=== PATIENT | male | born 1990 | race Caucasian/White ===

== ENCOUNTER 2023-04-22 08:39 | Outpatient (AMB) | payer OTHER, SELFPAY ==
[2023-04-22 08:41] VITALS: BP 144/96; PULSE 81; O2SAT 96; BMI 35.3
--- NOTE | 2023-04-22 08:41 | MHC.PC.OV ---
Vital Signs 04/22/23 08:41 Height 5 ft 5 in Weight 212 lb BMI 35.3 BP 144/96 H Blood Pressure Location Lt brachial Position Sitting Pulse 81 Pulse Source Pulse Oximeter Temp Source Skin Pulse Oximetry (%) 96 Oxygen Delivery Method Room Air Intake Visit Reasons: Medication Review-High BP Product Development Technician Required: No Allergies doxycycline Allergy (Unknown, Verified 04/22/23 08:41) nausea,vomitting Tobacco use date assessed: 04/22/23 Dental Screening Dental Screen Date: 04/22/23 Did you have a dental visit in the last 12 months?: No Did you have a dental problem in the last 6 months where you did not have access to dental care?: No HPI HPI Comments History of Present Illness Details 32-year-old male past medical history significant for hypertension, substance abuse, hypercholesteremia and smoker. Patient of Dr. Angel last seen in June presents today for follow-up for elevated blood pressures. Patient states has blood pressure has been elevated and he is currently getting headaches mostly daily. Denies any chest pain or blurred vision. Patient currently on amlodipine 10 mg daily states he is compliant with this. Continues to smoke 4 cigarettes daily. Patient reports was on lisinopril hold past but did a side effect from of ED so it was discontinued. Patient states was [facility] for testicular abscesses, patient recommended to schedule fro ER follow up. Patient requesting refill on his nystatin powder, refill sent. [facility], LAT[facility] Medical History (Updated 07/30/22 @ 09:34 by Odell Angel MD) Benign essential hypertension Bipolar disorder History of opioid abuse History of substance abuse Obesity with body mass index (BMI) of 30.0 to 39.9 Pure hypercholesterolemia Smoker Spermatocele Surgical History Hx of colonoscopy (~04/26/09) Family History Father Hypertension Mother Cancer Maternal Grandmother Hypertension Maternal Uncle Hypertension Hyperlipidemia Social History (Updated 07/30/22 @ 09:19 by Odell Angel MD) Housing: House Alcohol intake: current Alcohol intake frequency: a few times a week Patient Tobacco Use Status: Current everyday Tobacco user Cigarettes Per Day: 4 Years Smoked: 15 Second Hand Smoke Exposure: Yes service: No Current occupational status: unemployed Cognitive needs: No Hearing needs: No Vision needs: No Questionnaire PHQ-9 Over the last 2 weeks, how often have you been bothered by any of the following problems? 1. Little interest or pleasure in doing things: not at all 2. Feeling down, depressed, or hopeless: not at all 3. Trouble falling or staying asleep, or sleeping too much: not at all 4. Feeling tired or having little energy: not at all 5. Poor appetite or overeating: not at all 6. Feeling bad about yourself - or that you are a failure or have let yourself or your family down: not at all 7. Trouble concentrating on things, such as reading the newspaper or watching television: not at all 8. Moving or speaking so slowly that other people could have noticed. Or the opposite - being so fidgety or restless that you have been moving around a lot more than usual: not at all 9. Thoughts that you would be better off or of hurting yourself in some way: not at all Total score: 0 Depression Screening Interpretation: Negative Source: Developed by Drs. Ernie Oliveira, Oriana Lares, Aramis Lomeli and colleagues, with an educational audrey from [employer]. Thrive Questionnaire Date Thrive assessed: 04/22/23 I am a: Patient What is your living situation today?: I have a steady place to live Within the past 12 months, did the food you bought not last and you didn't have the money to get more?: Never true Within the past 12 months, did you worry whether your food would run out before you got money to buy more?: Never true AUDIT C Alcohol Use Questionnaire (AUDIT-C) 1. How often do you have a drink containing alcohol?: 2-4 times a month 2. How many drinks containing alcohol do you have on a typical day when you are drinking?: 1 or 2 3. How often do you have six or more drinks on one occasion?: Never Total Score: 2 Score Reviewed/Action Taken: Yes HEYDI-7 AMB Questionnaire HEYDI-7 Date HEYDI - 7 assessed: 04/22/23 Feeling nervous, anxious, or on edge: 0 = Not at all Not being able to stop or control worryin = Not at all Worrying too much about different things: 0 = Not at all Trouble relaxin = Not at all Being so restless that it is hard to sit still: 0 = Not at all Becoming easily annoyed or irritable: 0 = Not at all Feeling afraid as if something awful might happen: 0 = Not at all Total HEYDI-7 score (0-4 normal; 5-9 mild; 10-14 moderate; 15-21 severe): 0 Source: Developed by Drs. Ernie Oliveira, Oriana Lares, Aramis Lomeli and colleagues, with an educational audrey from [employer]. Review of Systems Const Denies chills, Denies fatigue, Denies fever(s) and Denies poor appetite Eyes Denies no additional complaints ENT Reports Normal hearing present Card Denies chest pain, Denies syncope, Denies rapid heart rate and Denies dyspnea Resp Denies cough and Denies dyspnea GI Denies change in stool character, Denies constipation, Denies diarrhea, Denies nausea and Denies vomiting Denies dysuria, Denies urinary frequency and Denies urinary urgency Neuro Reports Normal hearing present, Denies confusion and Denies syncope Psych Denies confusion Endo Denies fatigue Physical exam (Primary Care) Vital Signs: Last Vital Signs Pulse 81 04/22/23 08:41 BP 144/96 H 04/22/23 08:41 Pulse Ox 96 04/22/23 08:41 Oxygen Delivery Method Room Air 04/22/23 08:41 BMI result Body Mass Index 35.3 Tobacco/Smoking Status: Tobacco use Status Tobacco use date assessed 04/22/23 04/22/23 08:47 Patient Tobacco Use Status Current everyday Tobacco 04/22/23 08:47 PHQ-9: PHQ-9 Score PHQ-9: Total score 0 04/22/23 08:49 Depression Screening Interpretation: Negative Thrive Assessment: Date of Thrive Assessment Date Thrive assessed 04/22/23 04/22/23 08:47 Const General: No confusion Orientation/consciousness: No confusion HENMT Head: Yes normocephalic and Yes atraumatic Eyes Conjunctivae: conjunctivae normal Chest Chest palpation & inspection: normal inspection of the chest Resp Effort & Inspection: normal respiratory effort Auscultation: clear to auscultation bilaterally, no crackles, no rhonchi and no wheezes Cardio Rate: regular rate Rhythm: regular rhythm Heart sounds: S1 normal heart sound present and S2 normal heart sound present GI Inspection: Yes normal to inspection Neuro General: No confusion Cranial nerves: Yes Normal hearing present Extrem General: No edema Assessment and Plan Assessment & Plan (1) Hypertension: Code(s): I10 - Essential (primary) hypertension Plan: Continue on amlodipine 10 mg daily and will start patient on hydrochlorothiazide 12.5 mg daily. Patient advised to follow low-salt diet and exercise. Follow-up in 2 weeks with nurse for blood pressure recheck. (2) Pure hypercholesterolemia: Code(s): E78.00 - Pure hypercholesterolemia, unspecified Plan: Follow low-cholesterol diet. Patient advised to get previously ordered fasting blood work completed. Plan Follow-up in 3 months Medications: New hydrochlorothiazide 12.5 mg PO DAILY 30 caps 0RF I10 - Essential (primary) hypertension Refilled Nystop (nystatin) 1 appl topical TID 60 grams 0RF 10 days NS L30.4 - Erythema intertrigo Coding Level of Care Code Est Pt Level 3 (72173) Diagnoses Hypertension I10 Pure hypercholesterolemia E78.00
== END 2023-04-22 09:00 | disposition home or self-care (01) ==
PROVIDERS: PCP Internal Medicine; Visit Provider Nurse Practitioner Family
DX: I10 Essential (primary) hypertension (principal); E78.00 Pure hypercholesterolemia, unspecified
CPT/HCPCS: 99213

== ENCOUNTER 2023-07-23 15:54 | Outpatient (AMB) | payer OTHER, SELFPAY ==
--- NOTE | 2023-07-23 16:16 | A.OFFPC_ITS ---
Vital Signs 07/23/23 16:17 Height 5 ft 5 in Weight 216 lb 2 oz BMI 36.0 BP 132/86 Blood Pressure Location Lt brachial Position Sitting Pulse 90 Pulse Source Pulse Oximeter Pulse Oximetry (%) 97 Oxygen Delivery Method Room Air Intake Visit Reasons: HTN, hypercholesterolemia Explosive Specialist Required: No Accompanied by: Self / Same As Patient Allergies doxycycline Allergy (Unknown, Verified 07/23/23 17:06) nausea,vomitting Medication List - Last Reconciled 07/23/23 by Odell Angel MD amlodipine 10 mg PO DAILY buprenorphine-naloxone 12-3 mg (Suboxone) 1 film sublingual DAILY hydrochlorothiazide 12.5 mg PO DAILY 90 days ibuprofen 600 mg PO Q8H PRN Nystop (nystatin) 1 appl topical TID 10 days NS Tobacco use date assessed: 07/23/23 Dental Screening Dental Screen Date: 07/23/23 Did you have a dental visit in the last 12 months?: Yes Did you have a dental problem in the last 6 months where you did not have access to dental care?: No Was dental information given to patient?: Patient has dentist HPI HTN, hypercholesterolemia HPI Details Patient comes in today for his follow up visit - was last seen by me at his last physical exam in June 2022 He had labs ordered at the time but he never got them done States that he currently feels okay Has been to the ER at [facility] a few times over this past spring/summer for recurrent scrotal abscess and was treated with oral Abx each time he went there States that most of the abscesses have gradually cleared up although he still has some residual 'cysts' on his scrotum that he states sometimes hurt - is wondering if he should see a specialist and have these surgically removed, if possible Would like to get a prescription for some 600 mg Ibuprofen to help with his pain in the meantime He denies any fever, headaches or dizziness Denies any chest pains, no shortness of breath No nausea /vomiting, no abdominal pain No change in bowel habits noted Needs a few of his Rx refilled PFSH Medical History History of substance abuse Bipolar disorder Obesity with body mass index (BMI) of 30.0 to 39.9 Smoker Spermatocele Pure hypercholesterolemia Benign essential hypertension History of opioid abuse Surgical History Hx of colonoscopy (~04/26/09) Family History Father Hypertension Mother Cancer Maternal Grandmother Hypertension Maternal Uncle Hypertension Hyperlipidemia Social History Housing: House Alcohol intake: current Alcohol intake frequency: a few times a week Patient Tobacco Use Status: Current everyday Tobacco user Tobacco use type: Cigarette Cigarettes Per Day: 4 Years Smoked: 15 Packs per year/per ci.00 Second Hand Smoke Exposure: Yes service: No Current occupational status: unemployed Cognitive needs: No Hearing needs: No Vision needs: No Questionnaire PHQ-9 Over the last 2 weeks, how often have you been bothered by any of the following problems? 1. Little interest or pleasure in doing things: not at all 2. Feeling down, depressed, or hopeless: not at all 3. Trouble falling or staying asleep, or sleeping too much: not at all 4. Feeling tired or having little energy: not at all 5. Poor appetite or overeating: not at all 6. Feeling bad about yourself - or that you are a failure or have let yourself or your family down: not at all 7. Trouble concentrating on things, such as reading the newspaper or watching television: not at all 8. Moving or speaking so slowly that other people could have noticed. Or the opposite - being so fidgety or restless that you have been moving around a lot more than usual: not at all 9. Thoughts that you would be better off or of hurting yourself in some way: not at all Total score: 0 Depression Screening Interpretation: Negative Depression Screening Done: Yes 46224 - PHQ-9 Billing: Yes Source: Developed by Drs. Ernie Oliveira, Oriana Lares, Aramis Lomeli and colleagues, with an educational audrey from [employer]. Thrive Questionnaire Date Thrive assessed: 07/23/23 I am a: Patient What is your living situation today?: I have a steady place to live Within the past 12 months, did the food you bought not last and you didn't have the money to get more?: Never true Within the past 12 months, did you worry whether your food would run out before you got money to buy more?: Never true Do you have trouble paying for medicines?: No Do you have trouble getting transportation to medical appointments?: No Do you have trouble paying your heating and electricity bill?: No Do you have trouble taking care of your child, family member or friend?: No Do you have trouble with day-to-day activities such as bathing, preparing meals, shopping, managing finances, etc.?: No Are you currently unemployed and looking for a job?: No Are you interested in more education?: No Please select the resources that you would like help with: None Currently or been in a relationship where the following occur: no concerns reported AUDIT C Alcohol Use Questionnaire (AUDIT-C) 1. How often do you have a drink containing alcohol?: 2-4 times a month 2. How many drinks containing alcohol do you have on a typical day when you are drinking?: 1 or 2 3. How often do you have six or more drinks on one occasion?: Never Total Score: 2 Score Reviewed/Action Taken: Yes HEYDI-7 AMB Questionnaire HEYDI-7 Date HEYDI - 7 assessed: 07/23/23 Feeling nervous, anxious, or on edge: 0 = Not at all Not being able to stop or control worryin = Not at all Worrying too much about different things: 0 = Not at all Trouble relaxin = Not at all Being so restless that it is hard to sit still: 0 = Not at all Becoming easily annoyed or irritable: 0 = Not at all Feeling afraid as if something awful might happen: 0 = Not at all Total HEYDI-7 score (0-4 normal; 5-9 mild; 10-14 moderate; 15-21 severe): 0 Source: Developed by Drs. Ernie Oliveira, Oriana Lares, Aramis Lomeli and colleagues, with an educational audrey from [employer]. Review of Systems Const Denies chills, Denies fatigue, Denies fever(s) and Denies headache(s) ENT Denies dysphagia, Denies dizziness, Denies headache(s), Denies neck pain, Denies odynophagia and Denies sore throat Card Denies chest pain, Denies rapid heart rate, Denies irregular heart rhythm, Denies palpitations and Denies dyspnea Resp Denies chest congestion, Reports cough (occasional - most likely from smoking), Denies dyspnea and Denies wheezing GI Denies abdominal pain, Denies constipation, Denies dysphagia, Denies diarrhea, Denies nausea, Denies odynophagia and Denies vomiting Details: (+) couple of residual small cysts on his left scrotum where the previous abscesses were located Denies hematuria, Denies difficulty urinating, Denies dysuria, Denies testicular pain and Denies urinary frequency Musc Denies back pain, Denies arthralgias and Denies neck pain Skin/Breast Reports rash (recurrent itchy rash over the inguinal areas ) Neuro Denies dizziness, Denies headache(s) and Denies paresthesias Endo Denies fatigue and Denies palpitations Aller/Immun Denies wheezing Physical exam (Primary Care) Vital Signs: Last Vital Signs Pulse 90 07/23/23 16:17 BP 132/86 07/23/23 16:17 Pulse Ox 97 07/23/23 16:17 Oxygen Delivery Method Room Air 07/23/23 16:17 BMI result Body Mass Index 36.0 Tobacco/Smoking Status: Tobacco use Status Tobacco use date assessed 07/23/23 07/23/23 16:19 Patient Tobacco Use Status Current everyday Tobacco 07/23/23 16:19 Tobacco use type Cigarette 07/23/23 17:13 PHQ-9: PHQ-9 Score PHQ-9: Total score 0 07/23/23 17:03 Depression Screening Interpretation: Negative Thrive Assessment: Date of Thrive Assessment Date Thrive assessed 07/23/23 07/23/23 16:19 Currently or been in a relationship where the following occur: no concerns reported Const General: no acute distress and alert HENMT Ears: TM's normal bilaterally and EAC's normal Throat: Yes posterior oropharynx normal and Yes tonsils normal (no TP congestion) Neck Neck: Yes no lymphadenopathy and Yes supple Thyroid: Thyroid normal Resp Auscultation: no rales, rhonchi (occasional) throughout and no wheezes Cardio Rate: regular rate Rhythm: regular rhythm Heart sounds: no murmurs GI Palpation (GI): Soft to palpation and nontender Auscultation: normal bowel sounds Other: (+) couple of residual cysts on the skin of the left scrotum where his previous cutaneous abscess occurred Testes: no testicular mass Back/Spine/Pelvis Thoracic/Lumbar Spine: thoracic and lumbar spine normal to inspection Skin Rashes: rashes noted (erythematous rash over the inguinal areas bilaterally) Extrem General: Yes no clubbing, cyanosis or edema Assessment and Plan Assessment & Plan (1) Benign essential hypertension: Code(s): I10 - Essential (primary) hypertension Plan: Reinforced low sodium diet - goal is systolic BP of 120 mm or less Continue Amlodipine 10 mg QD and HCTZ 12.5 mg QD - Rx refilled (2) Pure hypercholesterolemia: Code(s): E78.00 - Pure hypercholesterolemia, unspecified Plan: Reinforced low cholesterol diet Will have patient recheck his labs and fasting lipids JENNIFER for follow up as he has not had any follow-up labs done in a couple of years now (3) Intertrigo: Code(s): L30.4 - Erythema intertrigo Plan: Continue Nystatin powder [id number] gm apply to rash TID Will check FBS and HgbA1c for further evaluation - discussed that his frequent bouts of intertrigo may be due to hyperglycemia/diabetes so we should check him for this as well (4) Scrotal pain: Code(s): N50.82 - Scrotal pain Plan: Patient has a couple of residual cysts over the skin of his left scrotum that are likely left over lesions from his previous cutaneous abscesses as he was just treated with oral Abx and never underwent I & D States that these get painful at times and would like to see if they can be removed - will refer him to Urology for further evaluation and management (5) History of substance abuse: Code(s): F19.11 - Other psychoactive substance abuse, in remission Plan: Continue Suboxone 12-3 mg 1 film SL QD Follow up with Keny Dhaliwal in [place] as scheduled (6) Smoker: Code(s): F17.200 - Nicotine dependence, unspecified, uncomplicated Plan: Counseled again on smoking cessation (7) Obesity with body mass index (BMI) of 30.0 to 39.9: Code(s): E66.9 - Obesity, unspecified Plan: Reinforced diet/exercise as tolerated/lose weight Plan Follow up in 4 months Orders: Orders Complete Blood Count Auto Diff 07/23/23 I10 - Essential (primary) hypertension UA CC w/rflx Micro + Cult 07/23/23 R30.0 - Dysuria Vitamin D 25-OH Total 07/23/23 E55.9 - Vitamin D deficiency, unspecified Comprehensive [place]. Panel Fast 07/23/23 E78.00 - Pure hypercholesterolemia, unspecified Lipid Panel 07/23/23 E78.00 - Pure hypercholesterolemia, unspecified TSH reflex Free T4 07/23/23 E78.00 - Pure hypercholesterolemia, unspecified Hemoglobin A1c 07/23/23 R73.9 - Hyperglycemia, unspecified Referrals Urology Referral N50.82 - Scrotal pain Medications: New ibuprofen Take with food 600 mg PO Q8H PRN 90 tabs 1RF pain Changed From hydrochlorothiazide 12.5 mg PO DAILY 30 caps 0RF I10 - Essential (primary) hypertension To hydrochlorothiazide 12.5 mg PO DAILY 90 days 90 caps 1RF I10 - Essential (primary) hypertension Refilled amlodipine 10 mg PO DAILY 90 tabs 1RF Coding Level of Care Code Est Pt Level 4 (34757) Diagnoses Benign essential hypertension I10 Pure hypercholesterolemia E78.00 Intertrigo L30.4 Scrotal pain N50.82 History of substance abuse F19.11 Smoker F17.200 Obesity with body mass index (BMI) of 30.0 to 39.9 E66.9
[2023-07-23 16:17] VITALS: BP 132/86; PULSE 90; O2SAT 97; BMI 36.0
== END 2023-07-23 17:06 | disposition home or self-care (01) ==
PROVIDERS: PCP Internal Medicine; Visit Provider Internal Medicine
DX: I10 Essential (primary) hypertension (principal); E78.00 Pure hypercholesterolemia, unspecified; L30.4 Erythema intertrigo; F19.11 Other psychoactive substance abuse, in remission; N50.82 Scrotal pain; F17.210 Nicotine dependence, cigarettes, uncomplicated; E66.9 Obesity, unspecified
CPT/HCPCS: 99214

== ENCOUNTER 2025-08-15 14:13 | Emergency (ER) | payer SELFPAY ==
[2025-08-15] VITALS (7 sets, daily range): BP systolic 134–200; BP diastolic 92–120; PULSE 67–116; RESP 12–18; TEMP 36.6–36.9; O2SAT 97–98; BMI 35.0
--- NOTE | 2025-08-15 | ECG_ITS ---
Test Reason : CHEST PAIN Blood Pressure : */* mmHG Vent. Rate : 107 BPM Atrial Rate : 107 BPM P-R Int : 164 ms QRS Dur : 82 ms QT Int : 348 ms P-R-T Axes : 49 66 39 degrees QTcB Int : 464 ms Sinus tachycardia Otherwise normal ECG When compared with ECG of 04-Jan-2014 12:34, No significant change was found Referred By: Generic ED Physician Electronically Signed By: ALEXANDER THOMSON
--- NOTE | ~2025-08-15 | CT_ITS ---
CLINICAL HISTORY: neoplasm evaluation, pus abnormal tissue nasal sep CT sinus Comparison: None Findings: Clear mastoid air cells and middle ear cavities. There is mucosal thickening and an air-fluid level in the right sphenoid sinus. There is mucosal thickening and fluid density involving gravity dependent areas of the frontal sinuses. There is mucosal thickening and fluid density filling most of the ethmoid sinuses. There is inferior mucosal thickening and Fluid density involving posterior gravity dependent bilateral maxillary sinuses. Bilateral ostiomeatal complexes are occluded. Superior middle and inferior meatus are occluded. The left infundibulum is patent. The right infundibulum is occluded. No bone destruction or erosion. Bony nasal septum is midline. No tyree bullosa, or Rito cells. Orbits and limited view the intracranial contents are unremarkable. Temporomandibular joints intact Impression: Pansinusitis. This document has been electronically signed by: Jay Sharif MD on 08/15/2025 19:23:36
--- NOTE | ~2025-08-15 | XR_ITS ---
CLINICAL HISTORY: cough 2 view chest x-ray. Comparison: None Findings: No consolidation. Heart size normal No acute fracture. Impression: Central bronchial large airway inflammatory thickening, otherwise unremarkable. This document has been electronically signed by: Jay Sharif MD on 08/15/2025 15:03:29
--- NOTE | 2025-08-15 14:20 | ED_ITS ---
HPI - Chest Pain General Chief Complaint: Upper Respiratory Symptoms Stated Complaint: chest pain Time Seen by Provider: 08/15/25 17:10 Source: patient Mode of arrival: ambulatory Limitations: no limitations History of Present Illness ED Provider: Dr. Patrick HPI narrative: 34-year-old male presented hospital today for a month of sinusitis. Patient is complaining of nasal congestion, chest congestion. And pus coming out of his nose. Patient is a smoker. Noted to be hypertensive. He does not have a primary care doctor at this time to give him his blood pressure medicine. The patient has completed a course of amoxicillin for sinusitis without any alleviation of his symptoms therefore he presents to the ER for evaluation. He is complaining of increased shortness of breath due to the swelling in his nose. However he noticed regular pus drainage coming out of his nose. Related Data Home Medications ?Medication ?Instructions ?Recorded ?Confirmed buprenorphine 12 mg-naloxone 3 mg 1 film sublingual DA COLLETTE 07/30/22 07/23/23 sublingual film (Suboxone) Previous Rx's ?Medication ?Instructions ?Recorded Nystop 100,000 unit/gram topical 1 appl topical TID 10 days #60 04/22/23 powder (nystatin) grams amlodipine 10 mg tablet 10 mg PO DAILY #90 tabs 07/01 01/20 hydrochlorothiazide 12.5 mg capsule 12.5 mg PO DAILY 9 0 days #90 caps 07/23/23 ibuprofen 600 mg tablet 600 mg PO Q8H PRN pain #90 t abs 07/23/23 amlodipine 5 mg tablet 5 mg PO DAILY 30 days #30 ta bs 08/15/25 benzoyl peroxide 2.5 % topical 1 appl topical DAILY GA N acne #21 08/15/25 cream grams ciprofloxacin HCl 500 mg tablet 500 mg PO Q12H 5 days #10 tabs 08/15/25 metoprolol succinate 25 mg 25 mg PO DAILY 30 days #30 tabs 08/15/25 tablet,extended release 24 hr Allergies Allergy/AdvReac Type Severity Reaction Status Date / Time doxycycline Allergy Unknown nausea,vomi Verified 08/15/25 14:25 tting Review of Systems 2 Review of Systems: Pertinent review of systems as mentioned in HPI. All other system otherwise negative. [facility] Past Medical History [facility] Narrative: Hypertension, tobacco use Medical History History of substance abuse Bipolar disorder Obesity with body mass index (BMI) of 30.0 to 39.9 Smoker Spermatocele Pure hypercholesterolemia Benign essential hypertension History of opioid abuse Surgical History Hx of colonoscopy (~04/26/09) Family History Family History Father Hypertension Mother Cancer Maternal Grandmother Hypertension Maternal Uncle Hypertension Hyperlipidemia Social History Social History Housing: House Alcohol intake: current Alcohol intake frequency: a few times a week Patient Tobacco Use Status: Current everyday Tobacco user Tobacco use type: Cigarette Cigarettes Per Day: 4 Years Smoked: 15 Smoked in Last 30 Days: Yes Second Hand Smoke Exposure: Yes Use of substances other than those prescribed or required for medical reasons: No Advance Directives: No Advance Directives Information Provided: No Do you have a plan to hurt others: No Plan service: No Current occupational status: unemployed Cognitive needs: No Hearing needs: No Vision needs: No Physical Exam 2 Exam: Exam: General: Pleasant, no distress, interacting appropriately Head: Normacephalic, atraumatic ENT: Erythema in the back of the oropharynx, there is pus draining from patient's bilateral nares. No fluctuant mass This is abnormal tissue on the nasal septum. The patient denies any trauma appears to be friable Cardiovascular: regular rate, regular rhythm, no murmurs, rubbing, gallops Respiratory: CTAB, no wheeze, rales, rhonchi Neurological: Awake and alert, no facial droop noted Skin: Warm and dry Psychiatric: Appropriate mood and thoughts Vital Signs: Vital Signs: Last Vital Signs Temp 97.9 F 08/15/25 19:59 Pulse 67 08/15/25 19:59 Resp 16 08/15/25 19:59 BP 140/103 H 08/15/25 19:59 Pulse Ox 97 08/15/25 19:59 O2 Del Method Room Air 08/15/25 19:59 BMI result Body Mass Index 35.0 Course Course Course Narrative: This is a Rapid Medical Examination (RME) performed by Charan Abdul PA-C in triage. Full HPI, ROS, assessment and treatment plan per primary provider in the Main ED. Hx: 34 yo M hx bipolar disorder, polysubstance abuse, HTN, current smoker here for eval of nasal congestion, cough, b/l ear pain, chest pain w/ breathing. seen at [facility] 3 wks ago - dx w/ flu, rx abx, symptoms seem like they are worse now. PE/vitals: hypertensive 199/120, took bp meds this morning. Plan: labs, viral swabs, cxr, ekg Medications Administered Discontinued Medications Generic Name Dose Route Start Last Admin Trade Name Santosh PRN Reason Stop Dose Admin Ciprofloxacin 400 mg in 200 mls @ 200 mls/hr 08/15/25 17:35 08/15/25 19:01 Cipro IV 08/15/25 18:34 Infused ONCE ONE Infusion Iohexol 100 ml 08/15/25 18:07 08/15/25 18:08 Iohexol 350 Mg/Ml 100 Ml Infus..Btl IV 08/15/25 18:08 85 ml ONCE ONE Administration Metoprolol Tartrate 25 mg 08/15/25 17:35 08/15/25 17:46 Metoprolol Tartrate 25 Mg Tablet PO 08/15/25 17:36 25 mg ONCE ONE Administration Protocol Medical Decision Making Medical Decision Making MDM Narrative: 34-year-old male presenting to ER today for evaluation of chronic sinusitis. Has not been improving the despite a course of amoxicillin. On exam patient does not appear to be in respiratory distress no sign of stridor. Patient does not appear to be tachypneic or hypoxic. I do not think there is a airway issue at this time. However on further exam patient is knows there is pus draining from the nasal septum. The tissue does appear to be friable. This may be secondary to traumatic rubbing of the nose. Or may be secondary to nasal neoplasm. Given that patient's symptoms did not improve amoxicillin. We will plan to obtain a CT imaging of the nasal cavity to assess for any signs of neoplasm. Patient stated that the right side of his face does feel more full than the left side. CT imaging was obtained. No signs of neoplasm. At this time we will plan to discharge patient. We will plan to give patient a course of ciprofloxacin to cover for Pseudomonas infection. Benzoyl peroxide will be provided to the patient for the pus drainage in his nose. Differential Diagnosis Differential Diagnoses: The differential diagnosis associated with the presentation includes Sinusitis, nasal carcinoma, squamous cell carcinoma, nasal abscess Lab Data MDM Lab Attestation statement: I reviewed the patient's lab results. 08/15/25 14:38 08/15/25 14:38 Labs: Lab Results 08/15/25 Range/Units 14:38 WBC 10.6 (4.8-10.8) X10*3/uL RBC 4.98 (4.60-5.80) X10*6/uL Hgb 13.8 L (14.0-18.0) g/dl Hct 42.7 (42.0-52.0) % MCV 85.7 (80.0-98.0) fL MCH 27.7 (27.0-33.0) pg MCHC 32.3 (31.0-36.0) g/dl RDW 13.7 (11.0-16.0) % Plt Count 323 (160-400) X10*3/uL MPV 9.2 L (9.4-12.4) fL Immature Gran % (Auto) 0.5 H (0.0-0.4) % Neut % (Auto) 58.6 (45-73) % Lymph % (Auto) 24.5 (20-40) % Richardson % (Auto) 8.8 (2-11) % Eos % (Auto) 6.6 H (0-4) % Baso % (Auto) 1.0 (0-2) % Lymph # (Auto) 2.6 (1.2-4.9) X10*3/uL Richardson # (Auto) 0.9 (0.1-1.2) X10*3/uL Eos # (Auto) 0.7 H (0.0-0.4) X10*3/uL Baso # (Auto) 0.1 (0.0-0.2) X10*3/uL Abs Immat Gran (auto) 0.05 H (0.00-0.03) X10*3/uL Absolute Neuts (auto) 6.2 (2.0-8.3) x10*3/uL Absolute Nucleated RBC 0.000 (0.0-0.012) X10*3/uL Nucleated RBC % (auto) 0.0 (0.0-0.2) /100WBC Sodium 140 (135-145) mmol/L Potassium 4.1 (3.3-5.1) mmol/L Chloride 103 (96-108) mmol/L Carbon Dioxide 29 (22-29) mmol/L Anion Gap 12 (12-20) BUN 9 (9-16) mg/dL Creatinine 0.67 (0.5-1.4) mg/dL Estim Creat Clear Calc 161.9 Estimated GFR > 60 Random Glucose 96 (60-115) mg/dL Calcium 10.2 (8.4-10.2) mg/dL Magnesium 2.2 (1.6-2.6) mg/dL Total Bilirubin 0.3 (0.0-1.0) mg/dL AST 30 (5-37) U/L ALT 43 H (0-40) U/L Alkaline Phosphatase 82 (39-117) U/L Troponin I High Sens < 2.7 (<3.5-35.0) ng/L Total Protein 7.8 (6.5-8.0) g/dL Albumin 5.0 (3.5-5.0) g/dL Lipase 15 (8-78) U/L Influenza Type A (PCR) NEGATIVE (Negative) Influenza Type B (PCR) NEGATIVE (Negative) RSV RNA Qual (PCR) NEGATIVE (Negative) SARS-CoV-2 RNA (RT-PCR) NEGATIVE (Negative) Independent Interpretation I performed an independent interpretation of an: CT Scan Radiology Impression Discussion of test interpretation with radiology: I have reviewed the radiologist's reading. Discharge Plan Discharge Clinical Impression: Sinusitis Patient Disposition: Home, Self-Care Instructions: Sinusitis (ED) Prescriptions: New amlodipine 5 mg tablet 5 mg PO DAILY 30 Days Qty: 30 0RF metoprolol succinate 25 mg tablet extended release 24 hr 25 mg PO DAILY 30 Days Qty: 30 0RF ciprofloxacin HCl 500 mg tablet 500 mg PO Q12H 5 Days Qty: 10 0RF benzoyl peroxide 2.5 % cream 1 appl topical DAILY PRN (Reason: acne) Qty: 21 0RF No Action buprenorphine-naloxone [Suboxone] 12-3 mg film 1 film sublingual DAILY Patient Comments: [place] amlodipine 10 mg tablet 10 mg PO DAILY Qty: 90 1RF hydrochlorothiazide 12.5 mg capsule 12.5 mg PO DAILY 90 Days Qty: 90 1RF ibuprofen 600 mg tablet 600 mg PO Q8H PRN (Reason: pain) Qty: 90 1RF Rx Instructions: Take with food nystatin [Nystop] 100,000 unit/gram powder 1 appl topical TID 10 Days Qty: 60 0RF Referrals: [facility] [Provider Group, Ear, Nose, Throat] Referral Note: Chronic sinusitis [facility] [Provider Group, Internal Medicine] Stand Alone Forms: Work/School Release Interventions: ED Discharge Assessment Last Done: 08/15/25 19:59 Discharge Date/Time: 08/15/25 20:00 Print Language: Tamazight
[2025-08-15 14:53] LABS: MANUAL DIFF FLAG NO
[2025-08-15 14:57] LABS: Hematocrit 42.7 % (42.0-52.0); Hemoglobin 13.8 g/dl (14.0-18.0); Imm Gran Abs Auto 0.05 X10*3/uL (0.00-0.03); Imm Gran Pct Auto 0.5 % (0.0-0.4); Lymphocytes Absolute Auto 2.6 X10*3/uL (1.2-4.9); Mean Corpuscular HGB Conc 32.3 g/dl (31.0-36.0); Mean Corpuscular Hemoglobin 27.7 pg (27.0-33.0); Mean Corpuscular Volume 85.7 fL (80.0-98.0); NRBC Abs Auto 0.000 X10*3/uL (0.0-0.012); NRBC Pct Auto 0.0 /100WBC (0.0-0.2); Platelet Count 323 X10*3/uL (160-400); Red Blood Count 4.98 X10*6/uL (4.60-5.80); White Blood Count 10.6 X10*3/uL (4.8-10.8)
[2025-08-15 15:14] LABS: Alanine Aminotransferase 43 U/L (0-40); Albumin Level 5.0 g/dL (3.5-5.0); Alkaline Phosphatase 82 U/L (39-117); Anion Gap 12 (12-20); Aspartate Amino Transferase 30 U/L (5-37); Blood Urea Nitrogen 9 mg/dL (9-16); Calcium 10.2 mg/dL (8.4-10.2); Carbon Dioxide 29 mmol/L (22-29); Chloride 103 mmol/L (96-108); Creatinine Clr Calc Pharmacy 161.9; Estimated Glomerular Filt Rate > 60; Lipase 15 U/L (8-78); Magnesium 2.2 mg/dL (1.6-2.6); Potassium 4.1 mmol/L (3.3-5.1); Sodium 140 mmol/L (135-145); Total Protein 7.8 g/dL (6.5-8.0)
[2025-08-15 15:22] LABS: Troponin-I High Sensitivity < 2.7 ng/L (<3.5-35.0)
[2025-08-15 15:31] LABS: Resp Syncy Virus RNA Qual PCR NEGATIVE (Negative); SARS COV2 PCR INHOUSE NEGATIVE (Negative)
--- OUTSIDE RECORDS SUMMARY | 2025-08-15 15:50 | XMS_ITS | Clinical Summary ---
Author Organization [facility] Address [address] [place] [address] Phone Care Team Providers Care Sql Architect Name Role Phone Physician, No Pcp Primary Care Provider Unavaila ble Allergies No known active allergies Medications amLODIPine (NORVASC) 5 mg tablet Take 2 tablets (10 mg total) by mouth 1 (one) time each day. 60 each 07/06/2025 Active amoxicillin-cla vulanate (AUGMENTIN) 875-125 mg per tablet Take 1 tablet by mouth 2 (two) times a day for 10 days. 20 each 07/06/2025 07/16/20 25 Active Problems No known active problems Encounters Date Type Department Care Team Description 07/06/2025 2:20 PM EDT - 07/06/2025 2:[address] [facility] [address] [place] [address] Acute maxillary sinusitis, recurrence not specified (Primary Dx); Hypertension, unspecified type Discharge Disposition: Home or Self Care from Last 3 Months Medical History Medical History Date Comments Hypertension Social History Tobacco Use Types Packs/Day Years Used Date Smoking Tobacco: Every Day Cigarettes Smokeless Tobacco: Never Tobacco Cessation:Ready to Q uit: Not Asked; Counseling Given: Not Answered Alcohol Use Standard Drinks/Week Comments Yes 0 (1 standard drink = 0.6 oz pur e alcohol) Sex and Gender Information Value Date Recorded Sex Assigned at Male 07/06/2025 2:27 PM EDT Legal Sex Male 9:35 AM EST Gender Identity Male 07/06/2025 2:27 PM EDT Sexual Orientation Straight 07/06/2025 2: 27 PM EDT Obstetrics History Last Filed Vital Signs Vital Sign Reading Time Taken Comments Blood Pressure 173/100 07/06/2025 1:23 PM EDT Pulse 106 07/06/2025 1:23 PM EDT Temperature 36.7 C (98.1 F) 07/06/2025 1:23 PM EDT Respiratory Rate 18 07/06/2025 1:23 PM EDT Oxygen Saturation 94% 07/06/2025 1:23 PM EDT Inhaled Oxygen Concentration - - Weight 93 kg (205 lb) 07/06/2025 1:23 PM EDT Height 165.1 cm (5' 5 ) 07/06/2025 1:23 PM EDT Body Mass Index 34.11 07/06/2025 1:23 PM EDT Plan of Treatment Health Maintenance Due Date Last Done Comments DTaP,Tdap,and Td Vaccines (1 - Tdap) 2007 Hepatitis B Vaccines (1 of 3 - 19+ 3-dose series) 2007 Pneumococcal Vaccine: Pediat rics (0 to 5 Years) and At-Risk Patients (6 to 49 Years) (1 of 2 - PCV) 2007 HPV Vaccines (1 - 3-dose SCD M series) 2015 Cholesterol Screening (Lipid Panel) 09/02/2022 HIV Screening 09/02/2022 Hepatitis C Screening 09/02/2022 Social Influencers of Health Screening 09/02/2022 Depression Screening 09/30/2024 COVID-19 Vaccine (2 - 2024-2 6 season) 2025 04/29/2021 Influenza Vaccine (#1) 2025 Hypertension/CHF/CAD Annual BMP Blood Test 07/06/2025 RSV Immunization Adult Patie nts (1 - 1-dose 75+ series) 2063 HIB Vaccines Aged Out No longer eligi ble based on patient's age to complete this topic Hepatitis A Vaccines Aged Out No long er eligible based on patient's age to complete this topic IPV Vaccines Aged Out No longer eligi ble based on patient's age to complete this topic MMR Vaccines Aged Out No longer eligi ble based on patient's age to complete this topic Meningococcal ACWY Vaccine Aged Out N o longer eligible based on patient's age to complete this topic Meningococcal B Vaccine Aged Out No l onger eligible based on patient's age to complete this topic RSV Immunization Patients Un alphonse 20 months Aged Out No longer eligible b ased on patient's age to complete this topic Varicella Vaccines Aged Out No longer eligible based on patient's age to complete this topic Care Teams Sql Architect Relationship Specialty Start Date End Date Physician, No Pcp PCP - General 07/06/25
--- NOTE | 2025-08-15 17:49 | PC.NURSE ---
No blood cultures needed per Patrick
[2025-08-15] MEDS: iohexoL 350 MG/ML 100 ML INFUS..BTL IV (18:08)
--- NOTE | 2025-08-15 18:11 | PC.NURSE ---
Sinus congestion, chest congestion and general malaise X1 month ongoing. Was taking amoxicillin for sinus infection, not getting better. Significantly congested, hard time breathing through nose, pus from right side. Per MD: right sided ear infection and sinus infection. Alert and oriented
== END 2025-08-15 20:00 | disposition home or self-care (01) ==
PROVIDERS: Physician Assistant Medical; Emergency Provider Student in an Organized Health Care Education/Training Program
DX: J32.9 Chronic sinusitis, unspecified (principal); I10 Essential (primary) hypertension; F17.210 Nicotine dependence, cigarettes, uncomplicated; Z03.818 Encounter for observation for suspected exposure to other biological agents ruled out; Z88.1 Allergy status to other antibiotic agents
CPT/HCPCS: 70487; 71046; 80053; 83690; 83735; 84484; 85025; 87637; 93005; 96365; 99285; J0744; Q9967

== ENCOUNTER → 2025-08-15 14:16 | Outpatient (BNV) | payer SELFPAY | PROVIDERS: Emergency Provider Student in an Organized Health Care Education/Training Program; Visit Provider Internal Medicine | DX: R00.0 Tachycardia, unspecified (principal) | CPT/HCPCS: 93010 ==

== ENCOUNTER → 2025-08-15 14:21 | Outpatient (BNV) | payer SELFPAY | PROVIDERS: Visit Provider Radiology Diagnostic Radiology | DX: J32.4 Chronic pansinusitis (principal); R05.9 Cough, unspecified | CPT/HCPCS: 70487; 71046 ==